=== PATIENT | male | born 1985 | race African-American/Black ===

== ENCOUNTER 2024-01-01 16:03 | Emergency (ER) | payer MEDICAID, SELFPAY ==
--- NOTE | 2024-01-01 16:36 | ED.GENADULT ---
HPI - General Adult General Chief complaint: Upper Respiratory Symptoms Stated complaint: back pain/sob/headache/throat hurts Time Seen by Provider: 01/01/24 18:21 Source: patient Mode of arrival: ambulatory Limitations: other (patient is deaf, communicating via writing.) History of Present Illness ED Provider: Tata Mendez PA-C HPI narrative: Patient is a 38 year old assigned male at with a history of being deaf presenting to the emergency department today with a sore throat. Patient writes that he has been feeling unwell over the last few days, including a sore throat. Patient writes he is concerned that he has strep throat because his partner recently had it. Patient denies any dizziness, lightheadedness, abdominal pain, nausea, vomiting, fever, chills, blurry vision, double vision, loss of vision, chest pain, difficulty breathing, shortness of breath, back pain, night sweats, pain with urination, increased urinary frequency, increased urinary urgency, blood in her urine or stool, syncope or a near syncopal episode, recent trauma or falls, bowel incontinence, bladder incontinence, bowel retention, bladder retention, or any other complaints at this time. Onset (ago): day(s) Relieving factors: none Exacerbating factors: none Associated symptoms: denies other symptoms Treatments prior to arrival: none Related Data Previous Rx's ?Medication ?Instructions ?Recorded amoxicillin 500 mg capsule 500 mg PO BID 10 days #20 caps 01/01/24 Allergies Allergy/AdvReac Type Severity Reaction Status Date / Time seafood Allergy Intermediate Rash Verified 01/01/24 16:42 Review of Systems Constitutional: Constitutional: Reports no additional constitutional complaints, Denies chills, Denies fever(s) and Denies night sweats Eyes: Eyes: Reports no additional eye complaints, Denies blurry vision, Denies change in vision, Denies diplopia, Denies eye discharge, Denies loss of vision and Denies eye pain ENT: Denies dizziness, Reports hearing loss (chronic for the patient) and Reports sore throat Cardiovascular: Cardiovascular: Reports no additional cardiovascular complaints, Denies chest pain, Denies lightheadedness, Denies Loss of Consciousness and Denies dyspnea Respiratory: Respiratory: Reports no additional respiratory complaints and Denies dyspnea Gastrointestinal: Gastrointestinal: Reports no additional gastrointestinal complaints, Denies abdominal pain, Denies melena, Denies hematochezia, Denies change in bowel habits and Denies change in stool character Genitourinary: Genitourinary: Reports no additional male genitourinary complaints, Denies hematuria, Denies oliguria, Denies difficulty urinating, Denies dysuria, Denies urinary frequency, Denies urinary hesitancy, Denies urinary incontinence and Denies urinary urgency Musculoskeletal: Musculoskeletal: Reports no additional musculoskeletal complaints, Denies numbness and Denies tingling Neurologic: Denies dizziness, Denies loss of vision, Denies numbness and Denies tingling Psychiatric: Psychiatric: Reports no additional psychiatric complaints Endocrine: Endocrine: Reports no additional endocrine complaints Hematologic/Lymphatic: Hematologic/Lymphatic: Reports no additional hematologic/lymphatic complaints Allergic/Immunologic: Allergic/Immunologic: Reports no additional allergic/immunologic complaints PMFSH Past Medical History Attestation statement: The following information was validated with the patient. Source: old records reviewed and nursing notes reviewed Social History Social History Advance Directives: No Advance Directives Information Provided: No Do you have a plan to hurt others: No Plan Physical Exam ED Vital Signs: Vital Signs - 24 hr 01/01/24 16:40 01/01/24 18:40 Temperature 99.8 F 99.8 F Pulse Rate 84 84 Respiratory Rate 18 18 Blood Pressure 117/56 L 117/56 L Pulse Oximetry 94 94 Oxygen Delivery Method Room Air Room Air BMI result Body Mass Index 33.4 Const General: cooperative, no acute distress, alert and awake Nutritional Appearance: well nourished Orientation/consciousness: patient oriented x3 Limitations: no limitations [facility] Head: Yes normal to inspection and Yes atraumatic Ears: external ears normal and other (chronic hearing loss) General nose exam: Normal external nose present, no nasal discharge noted and no epistaxis Face and sinus: Yes normal facial exam, No abrasion and No laceration Mouth: Normal oral and palatal mucosa present and no drooling Eyes General: appearance normal, both eyes and all related structures Periorbital: periorbital findings normal Eyelids: Yes eyelids normal Conjunctivae: conjunctivae normal Pupils: Equal, round and reactive pupils present EOM: EOMs intact bilaterally Neck Neck: Yes normal visual inspection, Yes full ROM and Yes no lymphadenopathy Chest Chest palpation & inspection: normal inspection of the chest Resp Effort & Inspection: normal respiratory effort and able to speak in complete sentences GI Inspection: Yes normal to inspection Neuro General: patient oriented x3 and moves all extremities Cranial nerves: Yes Equal, round and reactive pupils present Cognition (Neuro): normal cognition Motor exam (neuro): 5/5 motor strength present throughout Sensory Exam: Normal double simultaneous stimulation for sensation Coordination: eyesil-nr-mysu test normal Extrem General: Yes normal to inspection, Yes full ROM and Yes capillary refill normal Psych Appearance: grossly normal Mental Status: mental status grossly normal Affect: normal affect Attitude: cooperative Thought process: Normal thought process present Thought content: Normal thought content present Insight: Good insight present (Psych) Course Course Course Narrative: RME performed by Tata Mendez PA-C. Patient is a 38 year old assigned male at presenting to the emergency department with a sore throat and feeling generally unwell. Patient writes that over the last few days he has felt generally unwell with a sore throat. Detailed physical exam and review of systems are deferred to the national guard member. Swabs ordered. Patient placed back in the waiting room pending room availability and results. Medical Decision Making Medical Decision Making MDM Narrative: Patient is a 38 year old assigned male at with a history of being deaf presenting to the emergency department today with a sore throat and feeling generally unwell. Patient's physical exam was unremarkable. Patient's COVID-19, influenza, and RSV tests were negative. Patient's strep test was positive. I explained my physical exam findings as well as all test results to the patient. I answered all questions asked by the patient. I stressed the importance of the patient taking his medication as prescribed. I stressed the importance of the patient following up with his primary care provider. I stressed the importance of the patient returning to the emergency department immediately if his symptoms were to worsen or if he were to develop any dizziness, shortness of breath, difficulty breathing, chest pain, blurry vision, loss of vision, nausea, vomiting, abdominal pain, fever, chills, back pain, or any other complaints. Patient communicated agreement and understanding with this treatment plan and discharge. Differential Diagnosis Differential Diagnoses: The differential diagnosis associated with the presentation includes Strep pharyngitis Pharyngitis COVID-19 Influenza RSV Admission/Observation Consideration of admission/observation: Escalation of care including admission/observation considered Patient would have been admitted to the hospital had his work up had any findings where hospital admission was appropriate and his clinical presentation warranted hospital admission. Lab Data [facility] Lab Attestation statement: I reviewed the patient's lab results. My interpretation of these results are in the [facility] Rationale portion of this note. Labs: Lab Results 01/01/24 Range/Units 17:01 Influenza Type A (PCR) NEGATIVE (Negative) Influenza Type B (PCR) NEGATIVE (Negative) RSV RNA Qual (PCR) NEGATIVE (Negative) SARS-CoV-2 RNA (RT-PCR) NEGATIVE (Negative) S. pyogenes GrpA SOPHIE Positive A (Negative) Prescription Management I considered prescription management with: Antibiotic (patient prescribed an antibiotic for strep pharyngitis) Discharge Plan Discharge Clinical Impression: Pharyngitis, streptococcal Patient Disposition: Home, Self-Care Instructions: Strep Throat (DC) Additional Instructions: Follow up with your primary care provider. Return to the emergency department immediately if your symptoms worsen or if you develop any dizziness, shortness of breath, difficulty breathing, chest pain, blurry vision, loss of vision, nausea, vomiting, abdominal pain, fever, chills, back pain, or any other complaints. Prescriptions: New amoxicillin 500 mg capsule 500 mg PO BID 10 Days Qty: 20 0RF Referrals: [facility] [place] [facility] [Provider Group] (Call to establish and follow up with a primary care provider. If you already have a primary care provider, please follow up with them.) [facility] [place] [facility] [Provider Group] [facility] [place] [facility] [Provider Group] Stand Alone Forms: Work/School Release Interventions: ED Discharge Assessment Last Done: 01/01/24 18:40 Discharge Date/Time: 01/01/24 18:41 Print Language: Persian
[2024-01-01 16:40] VITALS: BP 117/56; PULSE 84; RESP 18; TEMP 37.7; O2SAT 94; BMI 33.4
[2024-01-01 17:20] LABS: IDNOW Serial# 08D9AD1C; Strep A Nucleic Acid Positive (Negative)
[2024-01-01 18:06] LABS: Influenza A PCR NEGATIVE (Negative); Influenza B PCR NEGATIVE (Negative); Resp Syncy Virus RNA Qual PCR NEGATIVE (Negative); SARS COV2 PCR INHOUSE NEGATIVE (Negative)
[2024-01-01 18:40] VITALS: BP 117/56; PULSE 84; RESP 18; TEMP 37.7; O2SAT 94
== END 2024-01-01 18:41 | disposition home or self-care (01) ==
PROVIDERS: Physician Assistant Medical; Emergency Provider Emergency Medicine
DX: J02.0 Streptococcal pharyngitis (principal); Z03.818 Encounter for observation for suspected exposure to other biological agents ruled out
CPT/HCPCS: 0241U; 87651; 99282; 99283

== ENCOUNTER 2024-01-15 16:16 | Emergency (ER) | payer MEDICAID, SELFPAY ==
--- NOTE | ~2024-01-15 | XR_ITS ---
EXAMINATION: XR FOREARM, LEFT CLINICAL INFORMATION: Self-harm wounds. COMPARISON: None available. TECHNIQUE: AP and lateral views of the left forearm were obtained. FINDINGS: The bones and soft tissues are normal. No fracture. Imaged portions of the elbow and wrist are unremarkable. XR/XR forearm LT 2V IMPRESSION: Normal left forearm.
[2024-01-15 17:28] VITALS: BP 113/61; PULSE 68; RESP 18; TEMP 36.4; O2SAT 98; BMI 29.8
--- NOTE | 2024-01-15 17:28 | ED_ITS ---
HPI - General Adult General Chief complaint: Wound/Laceration Stated complaint: left arm lac Time Seen by Provider: 01/15/24 19:37 Source: patient Mode of arrival: ambulatory Limitations: other (Deaf) History of Present Illness ED Provider: Choco Sr NP HPI narrative: Patient is a 38-year-old male who is deaf, reads lips for communication, declines ASL. He presents for superficial self-harm lacerations to the left forearm. Reports that his family members were preventing him from leaving the home and he got upset. He endorse feeling very anxious, and used a kitchen knife to cut his forearm. He denies suicidal or homicidal ideations. He denies use of anticoagulants or known coagulation disorders. He is unaware of the date of his last tetanus vaccine. There is a woman and 2 children present at bedside, he states that 2 girls are his daughters, when asking the woman her relation to the patient she states ?it is complicated?. Patient reports he has cut himself in the past as a way to relieve stress. Related Data Previous Rx's ?Medication ?Instructions ?Recorded amoxicillin 500 mg capsule 500 mg PO BID 10 days #20 caps 01/01/24 Allergies Allergy/AdvReac Type Severity Reaction Status Date / Time seafood Allergy Intermediate Rash Verified 01/15/24 17:33 Review of Systems Review of Systems: Yes all other systems are reviewed and are negative PMFSH Past Medical History Attestation statement: The following information was validated with the patient. Source: old records reviewed Social History Social History Advance Directives: No Advance Directives Information Provided: No Do you have a plan to hurt others: No Plan Physical Exam ED Vital Signs: Vital Signs - 24 hr 01/15/24 17:28 01/15/24 19:52 Temperature 97.5 F 98.0 F Pulse Rate 68 56 Respiratory Rate 18 20 Blood Pressure 113/61 105/60 Pulse Oximetry 98 97 Oxygen Delivery Method Room Air Room Air BMI result Body Mass Index 29.8 Appearance: Alert.?Oriented to person, place and time. No acute distress.?Normal affect. Eyes: Pupils equal, round and reactive to light.? ENT: Pharynx normal.?? Neck: Normal inspection.? Neck supple.?? CVS: Heart sounds normal. Normal heart rate and rhythm.? Pulses normal.?? Respiratory: No respiratory distress.? Lung sounds clear to auscultation bilaterally?? Abdomen: Soft and non-tender. Normoactive bowel sounds. No pulsatile mass.?? Skin: Skin warm and dry.? Normal skin color.? Left forearm with 8 superficial horizontal linear lacerations. Three with 0.5-1 cm environment to subcutaneous tissue that would be amenable to repair with suture, edges approximated well. No active bleeding. 2+ radial pulse bilaterally. Extremities: No lower extremity edema.? ? Neuro: Moves all extremities spontaneously. Sensation intact bilaterally. CN II- XII intact. Ambulates with normal steady gait. Course Course Course Narrative: This is a Rapid Medical Examination (RME) performed by Steven Arroyo PA-C in triage. Full HPI, ROS, assessment and treatment plan per primary provider in the Main ED. 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 Patient tells me that his family members or preventing him from leaving the house. This made him very anxious and upset, causing him to take a kitchen knife superficially cut his right forearm. He states he was not trying to harm himself. He denies SI/HI. He is unsure of last tetanus. reports pain to the area. on exam, multiple superficial linear lacerations noted to ventral aspect of proximal left forearm. No active bleeding. Wound dressed in triage. Plan: xrs, tdap booster Reevaluation(s) Reevaluation #1: Presented to bedside for suture, Patient not at bedside, nursing staff to check restrooms and waiting room for patient Time: 22:15 Reevaluation #2: Advised by nursing staff that patient was back in room, he was in the waiting room speaking with the mother of his daughters. Time: 22:45 Reevaluation #3: Presented back to bedside for suture, patient not present, not noted to be in the bathroom, not found in waiting room. Nursing staff made aware, at this time suspect that he has left without completing treatment Time: 23:00 Medications Administered Discontinued Medications Generic Name Dose Route Start Last Admin Trade Name Freq PRN Reason Stop Dose Admin Bacitracin 1 appl 01/15/24 21:24 01/15/24 21:45 Bacitracin Oint 0.9 Gm Packet TOPICAL 01/15/24 21:25 1 appl ONCE ONE Administration Protocol Diphtheria/Tetanus/Acell Pertussis 0.5 ml 01/15/24 21:24 01/15/24 21:42 Diphth,Pertus(Acell),Tet Adult 0.5 Ml Syringe IM 01/15/24 21:25 0.5 ml .ONCE ONE Administration Lidocaine HCl 5 ml 01/15/24 21:24 01/15/24 21:44 Lidocaine Hcl 1 % Mpf 5 Ml Vial SUBCUT 01/15/24 21:25 5 ml ONCE ONE Administration Medical Decision Making Medical Decision Making [facility] Narrative: Patient is a 38-year-old male who presents emergency department for evaluation, has superficial lacerations to the left forearm as per HPI and physical exam portion of this note, some of which requiring repair with suture, they were cleansed extensively with saline and Betadine, planning for suture repair, see procedural portion of this note for further detail. Extremity is neurovascularly intact distally. Tdap was updated. XR was obtained, no retained foreign body is present. Patient adamantly denies suicidal or homicidal ideations, self-harm lacerations as a means to alleviate stress, he has a partner at bedside who verbalizes no concern for SI. Anticipate that he will be stable for discharge home after repair with plan for suture removal in 7 days. Differential Diagnosis Differential Diagnoses: The differential diagnosis associated with the presentation includes (Laceration, neurovascular impairment, SI) Independent Interpretation I performed an independent interpretation of an: Plain X-Ray (No retained foreign body) Radiology Impression Discussion of test interpretation with radiology: I have reviewed the radiologist's reading. Radiologist Impression: XR/XR forearm LT 2V IMPRESSION: Normal left forearm. Independent Historian Clinical information obtained from an independent historian. History obtained from or confirmed by: Spouse (See narrative above) Prescription Management I considered prescription management with: Pain Medication (Acetaminophen/ibuprofen) Discharge Plan Discharge Clinical Impression: Laceration Patient Disposition: Left W/O Completing Treatment Additional Instructions: Stitches will need to be removed in 7 days Prescriptions: No Action amoxicillin 500 mg capsule 500 mg PO BID 10 Days Qty: 20 0RF Discharge Date/Time: 01/16/24 00:28
[2024-01-15 19:52] VITALS: BP 105/60; PULSE 56; RESP 20; TEMP 36.7; O2SAT 97
[2024-01-15] MEDS: Diphth,Pertus(ACell),Tet Adult 0.5 ML SYRINGE IM (21:42)
[2024-01-15] MEDS: Lidocaine HCl 1 % MPF 5 ML VIAL SUBCUT (21:44)
[2024-01-15] MEDS: Bacitracin Oint 0.9 GM PACKET 1 APPL TOPICAL (21:45)
--- NOTE | 2024-01-15 21:45 | PC.NURSE ---
pt medicated per SMITH- suture supplies at bedside
--- NOTE | 2024-01-15 23:11 | PC.NURSE ---
this nurse was in another pt exam room when pt came out of exam room headed towards exit yelling open the fucking door! Open the fucking door!. pt then turned to his parter in the room, yelling expletives, then exited department. the patient returned to the exam room unaccompanied. PRATEEK Sr informed this nurse that pt was once again not in the exam room.
== END 2024-01-16 00:28 | disposition left against medical advice (07) ==
PROVIDERS: Emergency Provider Internal Medicine
DX: S41.112A Laceration without foreign body of left upper arm, initial encounter (principal); F41.9 Anxiety disorder, unspecified; F43.0 Acute stress reaction; M79.602 Pain in left arm; X83.8XXA Intentional self-harm by other specified means, initial encounter; Y93.9 Activity, unspecified; Y92.9 Unspecified place or not applicable; Y99.8 Other external cause status; Z23 Encounter for immunization
CPT/HCPCS: 12001; 73090; 90471; 90715; 99283; 99284